=== PATIENT | male | born 1970 | race Caucasian/White ===

== ENCOUNTER 2018-03-03 19:55 | Emergency (ER) | payer BC ==
[2018-03-03 20:03] VITALS: BP 138/104
== END 2018-03-03 21:09 | disposition left against medical advice (07) ==
LOC: ED 19:55
DX: R20.0 Anesthesia of skin (principal); Z53.21 Procedure and treatment not carried out due to patient leaving prior to being seen by health care provider
CPT/HCPCS: 93005; 99282